=== PATIENT | male | born 1990 | race Two or more races ===

== ENCOUNTER 2016-10-22 21:50 | Emergency (ER) | payer SELFPAY ==
[~2016-10-22] VITALS: Ht 172.7 cm; Wt 79.4 kg
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
--- NOTE | 2016-10-22 22:59 | RAD ---
Indication: Fall with head injury to the left side of the head. Axial imaging through the brain was performed without contrast. One or more of the following individualized dose reduction techniques were utilized for this examination: 1. Automated exposure control 2. Adjustment of the mA and/or kV according to patient size 3. Use of iterative reconstruction technique No prior studies are available for comparison. The ventricles and sulci are within normal limits. No sulcal effacement, midline shift or hemorrhage is detected. The cisterns are patent. The visualized paranasal sinuses are clear. IMPRESSION: No acute intracranial process is detected. Electronically signed by: Carlos Chilel MD (10/22/2016 10:55 PM)
[2016-10-22 23:25] VITALS: BP 113/74
== END 2016-10-22 23:30 | disposition home or self-care (01) ==
LOC: ER 21:50
DX: S09.90XA Unspecified injury of head, initial encounter (principal); Y08.89XA Assault by other specified means, initial encounter; Y93.89 Activity, other specified; Y92.89 Other specified places as the place of occurrence of the external cause; Y99.8 Other external cause status
CPT/HCPCS: 70450; 99284-25